=== PATIENT | female | born 1950 | race Caucasian/White ===

== ENCOUNTER 2022-12-04 19:07 | Emergency (ER) | payer MEDICARE, MEDICAID, SELFPAY ==
--- NOTE | ~2022-12-04 | XR_ITS ---
EXAMINATION: XR hand LT min 3V, XR wrist LT min 3V DATE: 12/04/2022 19:41 INDICATION: Left hand pain and swelling post fall TECHNIQUE: 1. Posteroanterior, ulnar deviation, oblique, and lateral views of the left wrist were obtained. 2. Dorsal palmar, oblique and lateral views of the left hand were obtained. COMPARISON: None. FINDINGS: Chronic internally fixed fracture of the distal left radius. Recurrent acute fracture with cortical s tep-off along the ulnar side of the metaphyseal region and with sharply angulated cortex along the do rsal metaphysis consistent with dorsal impaction with currently 13 degrees dorsal tilt of the distal articular surface. Chronic nonunited ulnar styloid avulsion fracture. No other acute fractures identi fied. Chondrocalcinosis in the region of the triangular fibrocartilage complex. Polyarticular osteoar thritis, moderate severity at the first carpometacarpal, second metacarpophalangeal and second and fi fth distal interphalangeal joints and mild at the wrist, triscaphe and and remaining metacarpophalang eal and interphalangeal joints. There are prominent soft tissue swelling about the wrist. IMPRESSION: 1. Recurrent acute fracture with dorsal impaction at the site of a chronic internally fixed fracture of the distal left radius. 2. Chronic nonunited ulnar styloid avulsion fracture. 3. 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 Reviewed, dictated and finalized at location A. IMPRESSION: 1. Recurrent acute fracture with dorsal impaction at the site of a chronic inte rnally fixed fracture of the distal left radius. 2. Chronic nonunited ulnar styloid avulsion fracture. 3. 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
--- NOTE | ~2022-12-04 | XR_ITS ---
EXAMINATION: XR wrist RT min 3V, XR hand RT min 3V DATE: 12/04/2022 19:41 INDICATION: Right hand pain and swelling post fall TECHNIQUE: 1. Posteroanterior, ulnar deviation, oblique, and lateral views of the right wrist were obtained. 2. Dorsal palmar, oblique and lateral views of the right hand were obtained. COMPARISON: None. FINDINGS: Oblique extra articular fracture at the proximal metaphysis of the right first metacarpal. There is 3 mm dorsal/radial displacement, 10 degree palmar/ulnar angulation and 3 mm proximal migration. No oth er fractures identified. Typical distribution of mild polyarticular osteoarthritis at the wrist, radi al aspect of the carpus and at multiple metacarpophalangeal and essentially all of the interphalangea l joints. There are scattered heterotopic ossicles including along the trapezium and in the region of the radial collateral ligaments at the second metacarpophalangeal and proximal interphalangeal joint s. IMPRESSION: 1. Mildly displaced and angulated extra articular fracture at the base of the right first metacarpal. Reviewed, dictated and finalized at location A. IMPRESSION: 1. Mildly displaced and angulated extra articular fracture at the base of the r ight first metacarpal.
[2022-12-04 19:18] VITALS: BP 120/76; PULSE 70; RESP 18; TEMP 36.6; O2SAT 100
--- NOTE | 2022-12-04 20:23 | ED.GENADULT ---
HPI - General Adult General Chief complaint: Fall Stated complaint: fall with bilateral wrist and facial injuries Time Seen by Provider: 12/04/22 19:30 History of Present Illness HPI narrative: This is a 72-year-old female presenting ED after a fall. The fall occurred last night. Patient says she was walking to her garage when she tripped over a crack. She caught herself on her hands. she has a minor abrasion to her face. No loss of consciousness. No use of blood thinners. The patient continued to have pain in both of her hands today and her daughter made her come to the hospital to be evaluated. Patient denies any physical complaints. No neurologic deficits. Related Data Allergies Allergy/AdvReac Type Severity Reaction Status Date / Time No Known Allergies Allergy Verified 12/04/22 19:08 [facility] Past Medical History Medical History Hypothyroid Osteoporosis Exam Narrative: APPEARANCE: No apparent distress. Head: patient has a shallow abrasion over her nose. She has a shallow laceration inside her lip. No broken teeth. EYES: EOMI, NOSE: Atraumatic NECK: Trachea midline RESPIRATORY: No increased rate of breathing CARDIOVASCULAR: RRR, ABDOMINAL: Non-distended MUSCULOSKELETAl: Focal exam of the right thumb revealed tenderness at the base of the thumb. Some mild bruising and swelling. Sensation and cap refill intact in thumb. The rest the fingers are functional. Focal exam of the left wrist revealed tenderness over the distal radial radius and ulna. Bruising and swelling. Vp Clinical strength is limited due to pain. Cap refills less than 2 seconds and pulses are intact NEURO: Alert. Cranial nerves 2-12 grossly intact. Sensation light touch, motor function cerebellar function intact for 4 extremities. Gait exam was normal. SKIN:: Warm, dry. Normal color PSYCHIATRIC: Normal affect Course Vital Signs Vital signs: Vital Signs Temperature 98 F 12/04/22 19:18 Pulse Rate 70 12/04/22 19:18 Respiratory Rate 18 12/04/22 19:18 Blood Pressure 120/76 12/04/22 19:18 Pulse Oximetry 100 12/04/22 19:18 Oxygen Delivery Room Air 12/04/22 19:18 Temperature 98 F 12/04/22 19:18 Pulse Rate 70 12/04/22 19:18 Respiratory Rate 18 12/04/22 19:18 Blood Pressure 120/76 12/04/22 19:18 Pulse Oximetry 100 12/04/22 19:18 Oxygen Delivery Room Air 12/04/22 19:18 Procedures Orthopedic Splinting/Casting Injury #1: Splinting/Casting Date: 12/04/22 Side: right Upper Extremity Immobilizer: thumb spica Splint: customized in ED Pre-Procedure Neuro Vascular Exam: normal Post-Procedure Neuro Vascular Exam: normal Injury #2: Splinting/Casting Date: 12/04/22 Side: left Upper Extremity Injury Location: wrist Upper Extremity Immobilizer: volar splint Splint: customized in ED Pre-Procedure Neuro Vascular Exam: normal Post-Procedure Neuro Vascular Exam: normal Medical Decision Making MDM Narrative Medical decision making narrative: -Course: 72-year-old female presenting 24 hours after a fall. Patient has an extra-articular fracture to the base of the right thumb and some acute fracutre of the left distal radius complicated by previous hardware. The patient had her previous wrist surgery performed in 2004 at [facility] but does not know the orthopedic surgeon who performed it. The patient will be placed in a thumb spica and volar splint and given orthopedic follow-up. She has been encouraged would follow up with her previous orthopedic surgeon if possible. 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 Her daughter Sister. -Hx from independent
[2022-12-04] MEDS: TETANUS,DIPHTHERIA,AC PERTUSSIS ADULT (0.5 ML) BOOSTRIX IM (21:12)
[2022-12-04] MEDS: ACETAMINOPHEN 500 MG TABLET 1000 MG PO (21:12)
--- NOTE | 2022-12-04 21:32 | PC.NURSE ---
Thumb spica fiberglass splint applied to pt's right upper extremity. Short arm volar fiberglass splint applied to pt's left upper extremity.
[2022-12-04 21:34] VITALS: BP 124/72; PULSE 76; RESP 16; O2SAT 100
== END 2022-12-04 21:37 | disposition home or self-care (01) ==
PROVIDERS: Emergency Provider Emergency Medicine; PCP Family Medicine
DX: S62.231A Other displaced fracture of base of first metacarpal bone, right hand, initial encounter for closed fracture (principal); S52.502A Unspecified fracture of the lower end of left radius, initial encounter for closed fracture; E03.9 Hypothyroidism, unspecified; Z23 Encounter for immunization; W01.0XXA Fall on same level from slipping, tripping and stumbling without subsequent striking against object, initial encounter; Y92.008 Other place in unspecified non-institutional (private) residence as the place of occurrence of the external cause
CPT/HCPCS: 29125; 73110; 73130; 90471; 90715; 99284; A9270